=== PATIENT | female | born 1960 | race Caucasian/White ===

== ENCOUNTER 2018-06-30 13:34 | Emergency (ER) | payer OTHER, BC ==
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
[2018-06-30 13:52] VITALS: BP 143/101; PULSE 84; TEMP 98.5; BMI 28.8
[2018-06-30] MEDS ORDERED: METHOCARBAMOL 500 MG TABLET PO ONE (14:00)
[2018-06-30] MEDS ORDERED: METHOCARBAMOL 500 MG TABLET ONE (14:06)
== END 2018-06-30 14:16 | disposition home or self-care (01) ==
LOC: FER 13:34
DX: M54.2 Cervicalgia (principal); S13.4XXA Sprain of ligaments of cervical spine, initial encounter; X58.XXXA Exposure to other specified factors, initial encounter; Y93.89 Activity, other specified; Y92.89 Other specified places as the place of occurrence of the external cause; I49.9 Cardiac arrhythmia, unspecified; F17.210 Nicotine dependence, cigarettes, uncomplicated
CPT/HCPCS: 99282-25